=== PATIENT | female | born 1975 | race Caucasian/White ===

== ENCOUNTER 2019-02-04 11:51 | Outpatient (CLI) | payer BC, SELFPAY ==
[2019-02-04 12:23] LABS: Abs Immature Grans 0.08 k/cumm (0.0-0.09); Absolute Basophil Count 0.02 k/cumm (0.0-0.2); Absolute Eosinophil Count 0.04 k/cumm (0.0-0.7); Absolute Monocyte Count 0.57 k/cumm (0.11-0.7); Basophils % 0.2; Eosinophils % 0.3; HCT 39.5 % (36.0-46.0); Immature Grans % 0.6; Lymphocytes % 21.1; Mean Corp. HGB Concentration 30.4 g/dL (32.0-36.0); Mean Corpuscular Hemoglobin 28.2 pg (27.0-33.0); Mean Corpuscular Volume 92.7 fL (80-95); Mean Platelet Volume 10.6 fL (8.0-11.0); Monocytes % 4.6; Neutrophils % 73.2; Platelet Count 377 x1000/uL (130-400); RBC 4.26 m/cumm (4.00-5.20); RBC Distribution Width 13.5 % (11.7-14.6); White Blood Cell Count 12.44 k/cumm (4.4-10.8)
[2019-02-04 12:39] LABS: Absolute Lymphocyte Count 2.62 k/cumm (1.2-3.4); Absolute Neutrophil Count 9.11 k/cumm (1.2-6.7)
[2019-02-04 12:40] LABS: Anion Gap 8.4 mmol/L (3-11); BUN 15 mg/dL (7-18); CO2 27.6 mmol/L (21.0-32.0); CREATININE 0.76 mg/dL (0.55-1.02); Calcium 8.7 mg/dL (8.5-10.1); Chloride 103 mmol/L (98-107); Glucose 133 mg/dL (70-100); Potassium 4.2 mmol/L (3.5-5.1); Sodium 139 mmol/L (136-145)
== END 2019-02-04 12:11 ==
PROVIDERS: PCP Nurse Practitioner Family; Visit Provider Nurse Practitioner Adult Health
DX: M51.26 Other intervertebral disc displacement, lumbar region (principal)
CPT/HCPCS: 36415; 80048; 85025

== ENCOUNTER 2020-04-20 20:48 | Outpatient (REF) | payer MEDICAID, SELFPAY ==
[2020-04-20 22:26] LABS: Calculated LDL 72 mg/dL (<100); Cholesterol 143 mg/dL (<200); HDL Cholesterol 47 mg/dL (40-60); Triglyceride 120 mg/dL (<150)
[2020-04-20 22:58] LABS: ESR 35 mm/hr (0-20)
[2020-04-20 23:31] LABS: C-Reactive Protein 1.44 mg/dL (0.0-0.3)
== END 2020-04-20 21:08 ==
LOC: NCHCN 20:48
PROVIDERS: PCP Nurse Practitioner Family; Visit Provider Nurse Practitioner Family
DX: M62.81 Muscle weakness (generalized) (principal); E66.9 Obesity, unspecified; Z51.81 Encounter for therapeutic drug level monitoring
CPT/HCPCS: 80061; 85652; 86140

== ENCOUNTER 2023-01-01 12:18 | Outpatient (REF) | payer MEDICAID, SELFPAY ==
[2023-01-01 22:08] LABS: Abs Immature Grans 0.03 10^3/uL (0.0-0.06); Absolute Basophil Count 0.04 10^3/uL (0.0-0.2); Absolute Eosinophil Count 0.05 10^3/uL (0.0-0.7); Absolute Lymphocyte Count 1.64 10^3/uL (1.2-3.4); Absolute Neutrophil Count 6.59 10^3/uL (1.2-6.7); Basophils % 0.5; Eosinophils % 0.6; HCT 37.1 % (36.0-46.0); HGB 11.5 g/dL (11.2-15.7); Immature Grans % 0.3; Lymphocytes % 18.7; MCH 26.8 pg (27.0-33.0); MCV 87 fL (80-95); MPV 11.3 fL (8.0-11.0); Monocytes % 4.6; Neutrophils % 75.3; Platelet Count 288 10^3/uL (130-400); RBC 4.29 10^6/uL (3.93-5.22); RDW 14.3 % (11.7-14.6); WBC 8.75 10^3/uL (4.4-10.8)
[2023-01-01 22:53] LABS: ALT 17 U/L (14-59); AST 17 U/L (15-37); Albumin 3.4 g/dL (3.4-5.0); Alkaline Phosphatase 74 U/L (46-116); Anion Gap 7.2 mmol/L (3-11); BUN 9 mg/dL (7-18); Bilirubin, Total 0.3 mg/dL (0.2-1.0); CO2 25.8 mmol/L (21.0-32.0); CREATININE 0.8 mg/dL (0.55-1.02); Chloride 103 mmol/L (98-107); Estimated GFR 91.97 (mL/min/1.73m2); Glucose 92 mg/dL (74-106); Sodium 136 mmol/L (136-145); Total Protein 8.3 g/dL (6.4-8.2)
[2023-01-03 09:52] LABS: C3 Complement 166 mg/dL (81-157); C4 Complement 32 mg/dL (13-39)
[2023-01-03 14:49] LABS: Albumin g/dL 3.6 g/dL (3.6-5.2); Comment (See Note); Total Protein 7.4 g/dL (6.3-8.2)
[2023-01-03 16:21] LABS: Immunotyping, Serum (See Note)
== END 2023-01-01 12:19 | disposition home or self-care (01) ==
LOC: LBN 12:18
PROVIDERS: PCP Nurse Practitioner Family; Visit Provider Internal Medicine Rheumatology
DX: M35.9 Systemic involvement of connective tissue, unspecified (principal); Z79.899 Other long term (current) drug therapy
CPT/HCPCS: 80053; 84165; 85025; 86160; 86320

== ENCOUNTER 2023-03-20 19:25 | Outpatient (REF) | payer MEDICARE, SELFPAY ==
--- NOTE | 2023-03-20 10:15 | SKI_PTH ---
PATIENT: Carey Arenas LOC: [facility] U#:[id number] AGE/SX: 47/F ROOM: RE03/20/[address]: Urmila Flores : 1975 BED: DIS: 03/20/2023 SPEC #: SS: RECD: 03/21/23 12:39 STATUS: HAZEL RENata #: [id number] MIGUEL: 03/20/23 10:[address]: Urmila Flores DEPT: Surgical Specimen RECD BY: Sherri Morales ENTERED: 03/21/23 12:40 SP TYPE: JAMIE NARAYANAN DR: Heidi Youngblood Tissues: 1 - SKIN BIOPSY(SHAVE/PUNCH) Procedures: SKIN LEVEL 4 SPECIAL STAIN 1 Comments: [id number]
== END 2023-03-20 19:26 | disposition home or self-care (01) ==
LOC: NCHCN 19:25
PROVIDERS: PCP Nurse Practitioner Family; Visit Provider Physician Assistant
DX: D23.72 Other benign neoplasm of skin of left lower limb, including hip (principal)
CPT/HCPCS: 88305; 88312